=== PATIENT | male | born 1965 | race Caucasian/White ===

== ENCOUNTER 2021-03-01 18:06 | Emergency (ER) | payer OTHER ==
[~2021-03-01 18:06] MED LIST: Iopamidol 370 76% 100 ML VIAL ONE
[2021-03-01 18:16] LABS: #Basophils 0.1 thou/uL (0.0-0.2); #Eosinphils 0.6 thou/uL (0.0-0.7); #Lymphocytes 3.3 thou/uL (1.20-3.40); #Monocytes 0.8 thou/uL (0.11-0.59); #Neutrophils 3.7 thou/uL (1.40-6.50); %Basophils 1.5 % (0.0-1.0); %Eosinophils 6.8 % (0.0-10.0); %Lymphocytes 38.7 % (21.0-51.0); %Monocytes 9.6 % (0.0-10.0); %Neutrophils 43.4 % (42.0-75.0); Hemoglobin 15.9 g/dL (14.0-18.0); Mean Corpuscular HGB CONC 32.2 g/dL (32.0-36.0); Mean Corpuscular Hemoglobin 27.6 pg (27.0-31.0); Mean Corpuscular Volume 85.9 fL (78.0-98.0); Platelet Count 212 thou/uL (130-400); RBC Distribution Width 13.7 % (11.5-14.5); Red Blood Cell (RBC) Count 5.76 mill/uL (4.70-6.10); White Blood Cell (WBC) Count 8.5 thou/uL (4.8-10.8)
[2021-03-01 18:24] LABS: Prothrombin Time 12.7 sec (12.0-14.7)
[2021-03-01 18:25] LABS: PTT 27.7 sec (22.9-36.1)
[2021-03-01 18:33] LABS: ALT (SGPT) 32 U/L (8-55); AST (SGOT) 24 U/L (5-34); Albumin 4.7 g/dL (3.5-5.0); Alkaline Phosphatase 60 U/L (40-110); Anion Gap 18 mmol/L (10-20); BUN (Urea Nitrogen) 26 mg/dL (8.4-25.7); Bilirubin, Total 0.4 mg/dL (0.2-1.2); Calc. Creatinine Clearance 0 mL/min (70-130); Calcium 9.6 mg/dL (7.8-10.44); Carbon Dioxide 25 mmol/L (22-29); Chloride 102 mmol/L (98-107); Globulin 3.6 g/dL (2.4-3.5); Glucose 101 mg/dL (70-105); Potassium 3.5 mmol/L (3.5-5.1); Protein, Total 8.3 g/dL (6.0-8.3); Sodium 141 mmol/L (136-145)
[2021-03-01] MEDS ORDERED: Aspirin Chewable 81 MG TAB ONE (19:08)
== END 2021-03-01 20:25 | disposition short-term general hospital (02) ==
LOC: BURERS 18:06
DX: R47.01 Aphasia (principal); I10 Essential (primary) hypertension; E78.00 Pure hypercholesterolemia, unspecified; Z79.899 Other long term (current) drug therapy
CPT/HCPCS: 70450; 70496; 70498; 80053; 84484; 85025; 85610; 85730; Q9967